=== PATIENT | male | born 1990 | race African-American/Black ===

== ENCOUNTER 2016-11-10 05:15 | Emergency (ER) | payer OTHER ==
--- NOTE | 2016-11-10 05:33 | PDOC ---
History of Present Illness - General Chief Complaint: Wound Stated Complaint: BOIL Time Seen by Provider: 11/10/16 05:24 History Source: Patient Exam Limitations: No Limitations - History of Present Illness Initial Comments: 11/10/16 06:28 26-year-old male with no medical history presents to the emergency department complaining of an abscess to the left gluteal region 2 days. Patient denies any fever, chills, nausea/vomiting, chest pain, shortness of breath, abdominal pains, difficulty with bowel movements, urinary symptoms. Pain is described as 5 /10 dull intermittent discomfort. The pain is exacerbated on touch and alleviated at rest. Patient states he noticed some purulent discharge from the left gluteal region 20 minutes prior to his arrival. Patient denies any other complaints. Past History - Past Medical History Allergies/Adverse Reactions: Allergies Allergy/AdvReac Type Severity Reaction Status Date / Time No Known Allergies Allergy Verified 11/10/16 05:32 Home Medications: Ambulatory Orders Oxycodone HCl/Acetaminophen [Percocet 5-325 mg Tablet] 1 tab PO Q6H #12 tablet MDD 4 11/10/16 Sulfamethoxazole/Trimethoprim [Bactrim Ds -] 1 tab PO BID #14 tablet 11/10/16 Review of Systems - Review of Systems Able to Perform ROS?: Yes Comments:: 11/10/16 06:29 CONSTITUTIONAL: Absent: fever, chills, diaphoresis, generalized weakness, malaise, loss of appetite CARDIOVASCULAR: Absent: chest pain, loss of consciousness, palpitations, irregular heart rate, peripheral edema RESPIRATORY: Absent: cough, shortness of breath, dyspnea with exertion, orthopnea, wheezing, stridor, hemoptysis GASTROINTESTINAL: Absent: abdominal pain, abdominal distension, nausea, vomiting, diarrhea, constipation, melena, hematochezia SKIN: Absent: rash, itching, pallor left buttock 3cm fluctulant abscess neg lyamphangitis scant purulent drainage Is the patient limited Belarusian proficient: No *Physical Exam - Physical Exam Comments: 11/10/16 06:29 GENERAL: Well developed, well nourished. Awake and alert. No acute distress. CARDIOVASCULAR: Regular rate and rhythm. No murmurs, rubs, or gallops. Distal pulses are 2+ and symmetric. PULMONARY: No evidence of respiratory distress. Lungs clear to auscultation bilaterally. No wheezing, rales or rhonchi. ABDOMINAL: Soft. Non-tender. Non-distended. No rebound or guarding. No organomegaly. Normoactive bowel sounds. SKIN: Warm and dry. Normal capillary refill. No rashes. No jaundice. Progress Note - Progress Note Progress Note: Procedure: left gluteal Betadine prep I&D with #15 blade +purulent drainage; 11 cc Plain Iodoform packing 4X4 gauze coverage *DC/Admit/Observation/Transfer Diagnosis at time of Disposition: Abscess - Discharge Dispostion Disposition: HOME Condition at time of disposition: Stable Admit: No - Prescriptions Prescriptions: Sulfamethoxazole/Trimethoprim [Bactrim Ds -] 1 tab PO BID #14 tablet Oxycodone HCl/Acetaminophen [Percocet 5-325 mg Tablet] 1 tab PO Q6H #12 tablet MDD 4 - Referrals Referrals: Luke Cuevas [Primary Care Provider] - Primo Torres MD [Staff Physician] - - Patient Instructions Printed Discharge Instructions: Boil Additional Instructions: Warm compress Tylenol/motrin as needed for mild pain Rx: Percocet 5/325 take 1 tablet by mouth every 6 hours as needed for severe pain Rx: bactrim DS take 1 tablet by mouth twice a day for 7 days Return to the ER for sever/persistent/worsening symptoms
[2016-11-10 05:34] VITALS: BP 140/85; PULSE 84; TEMP 98.4; BMI 21.7
[2016-11-10] MEDS ORDERED: LIDOCAINE HCL 1%, 10 MG/ML (50 mL VIAL) SQ ONE (05:44)
[2016-11-10] MEDS ORDERED: LIDOCAINE HCL 2% (20ML MULTI-DOSE VIAL) NR ONE (05:45)
--- NOTE | 2016-11-10 05:51 | PDOC ---
*Physical Exam - Vital Signs Last Vital Signs Temp Pulse Resp BP Pulse Ox 98.4 F 84 20 140/85 99 11/10/16 05:32 11/10/16 05:32 11/10/16 05:32 11/10/16 05:32 11/10/16 05:32 ED Treatment Course - Medications Given in the ED: ED Medications Discontinued Medications Generic Name Dose Route Start Last Admin Trade Name Freq PRN Reason Stop Dose Admin Lidocaine HCl 10 ml 11/10/16 05:44 11/10/16 05:48 Xylocaine 1% SQ 11/10/16 05:45 10 ml ONCE ONE Administration Medical Decision Making - Medical Decision Making 11/10/16 05:51 Pt seen by the Advanced Practice Provider under my direct supervision Ancillary studies reviewed I agree with plan as outlined by the Advanced Practice Provider EBONY Solis *DC/Admit/Observation/Transfer Diagnosis at time of Disposition: Abscess - Discharge Dispostion Disposition: HOME Condition at time of disposition: Stable - Prescriptions Prescriptions: Sulfamethoxazole/Trimethoprim [Bactrim Ds -] 1 tab PO BID #14 tablet Oxycodone HCl/Acetaminophen [Percocet 5-325 mg Tablet] 1 tab PO Q6H PRN #12 tablet MDD 4 tabs PRN Reason: Severe Pain - Referrals Referrals: Primo Torres MD [Staff Physician] - Luke Cuevas [Primary Care Provider] - - Patient Instructions Printed Discharge Instructions: Boil Additional Instructions: Warm compress Tylenol/motrin as needed for mild pain Rx: Percocet 5/325 take 1 tablet by mouth every 6 hours as needed for severe pain Rx: bactrim DS take 1 tablet by mouth twice a day for 7 days Return to the ER for sever/persistent/worsening symptoms
[2016-11-10] MEDS ORDERED: SULFAMETHOXAZOLE/TRIMETHOPRIM 800MG/160MG D.S. TABLET PO ONE (06:21)
[2016-11-10] MEDS ORDERED: SULFAMETHOXAZOLE/TRIMETHOPRIM 800MG/160MG D.S. TABLET ONE (06:25)
== END 2016-11-10 06:31 | disposition home or self-care (01) ==
LOC: JER 05:15
PROC: 0H98XZZ Drainage of Buttock Skin, External Approach (ICD-10-PCS; principal; 2016-11-10)
DX: L02.31 Cutaneous abscess of buttock (principal)
CPT/HCPCS: 10060; 87070; 87186; 87205; 99282-25

== ENCOUNTER 2016-11-11 14:31 | Emergency (ER) | payer OTHER ==
[2016-11-11 14:38] VITALS: BP 110/65; PULSE 75; TEMP 98.2; BMI 20.7
--- NOTE | 2016-11-11 15:05 | PDOC ---
Suture Removal/Wound Check HPI - History of Present Illness Chief Complaint: Revisit,Wound Recheck Stated Complaint: FOLLOW-UP Time Seen by Provider: 11/11/16 14:48 History Source: Yes: Patient Exam Limitations: Yes: No Limitations Treated at: [facility] ED - Previous ED Treatment Type of procedure performed on last visit: Yes: I&D of Abscess Tetanus Immunization: Yes: Up to Date Antibiotics Prescribed: No - Onset of Previous Treatment Timing/Duration/Severity of Onset: reports: Yesterday Comment:: 11/11/16 15:10 Her packing change of right buttock abscess. Was seen 2 days ago here days ago for worsened pain and swelling to right buttock abscess. Incision and drainage performed, patient taking Bactrim as prescribed, and here for packing removal and evaluation. Denies fever, states pain is lessening, girlfriend reports having abscess to her groin as well. Past History - Travel Traveled outside of the country in the last 30 days: No Close contact w/someone who was outside of country & ill: No - Past Medical History Allergies/Adverse Reactions: Allergies No Known Allergies Allergy (Verified 11/11/16 14:38) Home Medications: Ambulatory Orders Oxycodone HCl/Acetaminophen [Percocet 5-325 mg Tablet] 1 tab PO Q6H PRN #12 tablet MDD 4 tabs 11/10/16 Sulfamethoxazole/Trimethoprim [Bactrim Ds -] 1 tab PO BID #14 tablet 11/10/16 Chlorhexidine Gluconate [Hibiclens For Decolonization -] 1 applic TP DAILY #1 bottle 11/11/16 General: Yes: no pertinent history - Immunization History Immunizations Up to Date: Yes - Social History Smoking Status: Current every day smoker Number of Ciarettes Per Day: 3 Suture Removal/Wound Check PE - Physical Exam Laceration/Wound Check Symptoms: reports: None Current Severity Level: None Maximum Severity Level: None Pain Radiation: None *Review of Systems - Review of Systems Able to Perform ROS?: Yes Constitutional: Yes: See HPI. No: Symptoms Reported, Chills, Fever, Loss of Appetite HEENTM: No: Symptoms Reported Respiratory: No: Symptoms reported Musculoskeletal: No: Symptoms Reported Integumentary: Yes: Symptoms Reported, See HPI, Lesions Neurological: Yes: See HPI. No: Symptoms reported All Other Systems: Reviewed and Negative Medical Decision Making - Medical Decision Making 11/11/16 15:13 Wound/abscess packing change. Appears to be healing, irrigated and repacked with approximately 2 cm of iodoform gauze. Tolerated well. Discussed need for skin de contamination with patient and girlfriend and provided Hibiclens surgical scrub for same. *DC/Admit/Observation/Transfer Diagnosis at time of Disposition: Abscess, Change or removal of wound packing - Discharge Dispostion Disposition: HOME Condition at time of disposition: Stable Admit: No - Patient Instructions Printed Discharge Instructions: DI for Skin Abscess Additional Instructions: Rest, keep area elevated. Avoid strenuous activity or exercise until wound is healed Use hot soaks to area to bring more blood to the surface and encourage drainage May change dressings as needed to keep clean - trying to avoid removal of packing for 2 days. If packing needs to be changed, return to emergency department or with your followup physician for wound care and evaluation and repacking as needed If packing needs to be removed, then in 2 days, while in the shower remove dressing and quickly pull the packing taken out. Allow water from shower to wash area thoroughly for 2-3 minutes, and pat dry upon exit of shower and replace dressing. Change his dressing daily until the wound is completely healed. May use Tylenol or Motrin for mild pain relief Use stronger medications as directed and prescribed Continue all medications as prescribed Followup with private physician in 2-3 days for wound check Return to emergency Department for worsening swelling, pain, redness, fevers as needed Mefoxin resistant Staphylococcus aureus is a normal skin bacteria and is mutated to be resistant to penicillin type drugs. The wounds may be draining and there for contagious to other family members. Vigorous handwashing and avoidance of skin contact of draining lesions it is important . All family members Will need to be protected and perform thorough cleaning of linens /towels/clothing. To decontaminate household: Soak in bath; in one half cup of bleach in 1 full tub of water 2 times a week x3 weeks With own scrub Nylon use chlorohexidine soap twice a week to decontaminate skin Clean tub /toilet with bleach wipes after each use Do not use same linens/avoid contact until lesions are healed Followup with private physician/line patroller Take all of Bactrim as directed May use ibuprofen or Tylenol for pain relief Followup with PMD in one week if no resolution Make appointment with line patroller for evaluation when possible
--- NOTE | 2016-11-13 07:45 | PDOC ---
Patient Follow-up (Call Back) - Post ED Follow - Up Reason for Call Back: Abnwl. Microbiology (Presumptive MRSA on 11/13/16, pt adequately treated with Bactrim.) <Shannan Granger - Last Filed: 11/13/16 07:42> - Disposition Rx Needed: No Additional Instructions/Notes: pt notified of MRSA in the wound. pt is improving. <Silvia Joy - Last Filed: 11/14/16 12:44> - Post ED Follow - Up Condition at time of discharge: Good Disposition at time of original discharge: HOME
== END 2016-11-11 15:11 | disposition home or self-care (01) ==
LOC: SUPCPDRO 14:31 → JERFT 14:31
DX: L02.31 Cutaneous abscess of buttock (principal); Z48.01 Encounter for change or removal of surgical wound dressing
CPT/HCPCS: 99281-25

== ENCOUNTER 2019-12-03 21:27 | Emergency (ER) | payer OTHER ==
[2019-12-03 21:33] VITALS: TEMP 98.6; BMI 23.5
--- OUTSIDE RECORDS SUMMARY | 2019-12-03 21:43 | XMS ---
:1990 [facility] Support Name Relationship Address Phone UE Unavailable Unavailable Unavailable CLEVE MERCADO MOTHER [address] [place] [address] Re-disclosure Warning The records that you are about to access may contain information from federally- assisted alcohol or drug abuse programs. If such information is present, then the following federally mandated warning applies: This information has been disclosed to you from records protected by federal confidentiality rules (42 CFR part 2). The federal rules prohibit you from making any further disclosure of this information unless further disclosure is expressly permitted by the written consent of the person to whom it pertains or as otherwise permitted by 42 CFR part 2. A general authorization for the release of medical or other information is NOT sufficient for this purpose. The Federal rules restrict any use of the information to criminally investigate or prosecute any alcohol or drug abuse patient.The records that you are about to access may contain highly sensitive health information, the redisclosure of which is protected by Article 27-F of the [facility] Public Health law. If you continue you may haveaccess to information: Regarding HIV / AIDS; Provided by facilities licensed or operated by the [facility] Office of Mental Health; or Provided by the [facility] Office for People With Developmental Disabilities. If such information is present, then the following [facility] mandated warning applies: This information has been disclosed to you from confidential records which are protected by state law. State law prohibits you from making any further disclosure of this information without the specific written consent of the person to whom it pertains, or as otherwise permitted by law. Any unauthorized further disclosure in violation of state law may result in a fine or nursing home sentence or both. A general authorization for the release of medical or other information is NOT sufficient authorization for further disclosure. Encounters Encounter Providers Location Date Indications Data Source(s ) [facility] Providers Payer name Policy type Policy ID Covered Covered constitution party's Policy P yamil / Coverage constitution party ID relationship to Martin Inf ormation type martin AFFINITY [id number] SP [id number] MEDICAID [id number] [facility] [id number] SP [id number] STRGY-AFF Dental [id number] S [id number] Dentaquest MKD [place] [id number] S [id number] Vision MKD [facility] [id number] S [id number] Options MKD Affinity MKD [id number] S [id number] Managed Care Medicaid [id number] S [id number] Regular Clinic Visit Problems, Conditions, and Diagnoses Code Display Name Description Problem Type Effective Data Sour ce(s) Dates Z00.00 Encounter for Encntr for Diagnosis 05/20/2018 MALOU ruiz general adult general adult 10:17:19 AM [facility] medical exam w/o EST [facility] Emergency Department abnormal findings [facility]) without abnormal findings
[2019-12-03] MEDS ORDERED: ACETAMINOPHEN 325 MG TABLET (FP) PO ONE (22:37)
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
[2019-12-03] MEDS ORDERED: ACETAMINOPHEN 325 MG TABLET (FP) ONE (23:06)
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
[2019-12-04 02:56] VITALS: BP 118/78; PULSE 68
== END 2019-12-04 02:56 | disposition home or self-care (01) ==
LOC: JER 21:27
PROC: 08Q1XZZ Repair Left Eye, External Approach (ICD-10-PCS; principal; 2019-12-03)
DX: S01.111A Laceration without foreign body of right eyelid and periocular area, initial encounter (principal)
CPT/HCPCS: 70450-TC; 70486-TC; 72125-TC; 99285-25